=== PATIENT | male | born 1960 | race Caucasian/White ===

== ENCOUNTER 2019-01-26 18:32 | Emergency (ER) | payer MEDICARE, MEDICAID ==
[~2019-01-26] VITALS: Ht 162.6 cm; Wt 53.0 kg
[2019-01-26 18:44] VITALS: BP 153/101
[2019-01-26] MEDS ORDERED: CEPH-572 PO (19:58)
[2019-01-26] MEDS ORDERED: SULF1TAB49 PO (19:58)
[2019-01-26] MEDS ORDERED: TETanus/Pertussis (Acell)/Diphther VAC/PF (Tdap-Adult) 0.5ml syringe IM ONE (20:00)
[2019-01-26] MEDS ORDERED: LIDOcaine 1% w/epiNEPHrine 1:200,000 30ml vial IM ONE (20:00)
== END 2019-01-26 20:38 | disposition home or self-care (01) ==
LOC: ER 18:33
DX: L02.415 Cutaneous abscess of right lower limb (principal); I10 Essential (primary) hypertension; G89.29 Other chronic pain; F12.90 Cannabis use, unspecified, uncomplicated; Z88.1 Allergy status to other antibiotic agents; Z88.2 Allergy status to sulfonamides; Z86.73 Personal history of transient ischemic attack (TIA), and cerebral infarction without residual deficits
CPT/HCPCS: 10060; 90471; 90715; 99283; J3490